=== PATIENT | male | born 1970 | race Caucasian/White ===

== ENCOUNTER 2023-09-30 08:16 | Outpatient (CLI) | payer OTHER, SELFPAY | END 2023-09-30 08:17 | disposition home or self-care (01) | LOC: NFLDREF 10-02 19:46 | PROVIDERS: PCP Family Medicine; Referring Provider Family Medicine; Visit Provider Family Medicine | DX: Z00.00 Encounter for general adult medical examination without abnormal findings (principal); I10 Essential (primary) hypertension; Z12.5 Encounter for screening for malignant neoplasm of prostate; Z13.6 Encounter for screening for cardiovascular disorders | CPT/HCPCS: 80053; 80061; 84153 ==

== ENCOUNTER 2023-12-28 11:10 | Outpatient (CLI) | payer OTHER, SELFPAY | END 2023-12-28 11:11 | disposition home or self-care (01) | LOC: OP CLINIC 11:10 | PROVIDERS: PCP Family Medicine; Visit Provider Internal Medicine | DX: Z12.11 Encounter for screening for malignant neoplasm of colon (principal); K64.8 Other hemorrhoids; K57.30 Diverticulosis of large intestine without perforation or abscess without bleeding; Z86.010 Personal history of colon polyps | CPT/HCPCS: 45378 ==

== ENCOUNTER 2024-05-30 15:36 | Outpatient (CLI) | payer OTHER, SELFPAY | END 2024-05-30 15:37 | disposition home or self-care (01) | PROVIDERS: PCP Family Medicine; Visit Provider Family Medicine | DX: R53.83 Other fatigue (principal); I10 Essential (primary) hypertension; Z83.49 Family history of other endocrine, nutritional and metabolic diseases | CPT/HCPCS: 82306; 82728; 83540; 83550; 84443 ==

== ENCOUNTER 2024-12-02 11:23 | Outpatient (CLI) | payer OTHER, SELFPAY | END 2024-12-02 11:24 | disposition home or self-care (01) | PROVIDERS: PCP Family Medicine; Visit Provider Family Medicine | DX: R53.83 Other fatigue (principal); I10 Essential (primary) hypertension; Z83.49 Family history of other endocrine, nutritional and metabolic diseases; Z12.5 Encounter for screening for malignant neoplasm of prostate; Z13.6 Encounter for screening for cardiovascular disorders | CPT/HCPCS: 80053; 80061; 82652; 82728; G0103 ==

== ENCOUNTER 2024-12-22 09:18 | Outpatient (CLI) | payer OTHER, SELFPAY | END 2024-12-22 09:19 | disposition home or self-care (01) | LOC: NFLDREF 12-24 03:09 | PROVIDERS: PCP Family Medicine; Referring Provider Family Medicine; Visit Provider Family Medicine | DX: E87.1 Hypo-osmolality and hyponatremia (principal) | CPT/HCPCS: 84295 ==

== ENCOUNTER 2025-03-10 07:56 | Outpatient (CLI) | payer OTHER, SELFPAY | END 2025-03-10 07:57 | disposition home or self-care (01) | LOC: NFLDREF 03-11 08:41 | PROVIDERS: PCP Family Medicine; Referring Provider Family Medicine; Visit Provider Family Medicine | DX: E87.1 Hypo-osmolality and hyponatremia (principal) | CPT/HCPCS: 80048 ==